=== PATIENT | female | born 1995 | race Caucasian/White ===

== ENCOUNTER 2017-07-18 08:50 | Emergency (ER) | payer OTHER ==
[2017-07-18 09:08] VITALS: BP 122/52
[2017-07-18] MEDS ORDERED: Ondansetron ODT TAB* 4 MG PO ONE (09:08)
[2017-07-18] MEDS ORDERED: Ondansetron ODT TAB* 4 MG ONE (09:10)
--- NOTE | 2017-07-18 20:31 | ED ---
Yasmany Mederos Gabriel, scribed for Christine Alonso MD on 07/18/17 at 0923 . Abdominal Pain/Female - HPI Summary HPI Summary: This patient is a 21 year old F presenting to [facility] with a chief complaint of abdominal pain since 0400. The patient rates the pain 10/10 in severity. Patient reports vomiting, diarrhea, stool and urinary incontinence. Patient denies vaginal discharge or bleeding. Patient is 28 week and has had another child by C section with no complications. She recently was taking abx for a bacterial infection. She does not recognize the medication rhogam but does not know her Rh status. She is followed by [facility]. Pt presented thinking she had the flu. Note Chief complaint listed states animal bite. Pt does not have an animal bite. Pt has abdominal pain. - History of Current Complaint Chief Complaint: EDAnimalBite Stated Complaint: 28 WKS PREG-POSSIBLE FLU Time Seen by Provider: 07/18/17 08:59 Hx Obtained From: Patient Hx Last Menstrual Period: 07/06/14 ?: Yes Onset/Duration: Lasting Hours - 0400, Still Present Timing: Constant Severity Initially: Severe Severity Currently: Severe Pain Intensity: 10 Pain Scale Used: 0-10 Numeric Location: Diffuse - low abdominal Radiates: No Character: Cramping Aggravating Factor(s): Nothing Alleviating Factor(s): Nothing Associated Signs and Symptoms: Positive: Urinary Symptoms, Vomiting, Diarrhea, Other: - urinary incontinence. Negative: Vaginal Bleeding Allergies/Adverse Reactions: Allergies Allergy/AdvReac Type Severity Reaction Status Date / Time Bee Venom Allergy Unknown Unknown Verified 07/18/17 10:08 Reaction Details PMH/Surg Hx/FS Hx/Imm Hx Previously Healthy: Yes Endocrine/Hematology History: Denies: Hx Diabetes, Hx Thyroid Disease Cardiovascular History: Denies: Hx Hypertension Respiratory History: Reports: Hx Asthma Denies: Hx Chronic Obstructive Pulmonary Disease (COPD) GI History: Denies: Hx Ulcer - Surgical History Surgery Procedure, Year, and Place: c section Infectious Disease History: No Infectious Disease History: Denies: Hx Hepatitis, Hx Human Immunodeficiency Virus (HIV), Traveled Outside the US in Last 30 Days - Family History Known Family History: Positive: Cardiac Disease, Other - cancer - Social History Alcohol Use: None Substance Use Type: Reports: Marijuana Smoking Status (MU): Light Every Day Tobacco Smoker Type: Cigarettes Have You Smoked in the Last Year: Yes Review of Systems Constitutional: Negative Cardiovascular: Negative Respiratory: Negative Positive: Abdominal Pain, Vomiting Genitourinary: Negative - vaginal discharge or bleeding Positive: incontinence - urinary and stool Skin: Negative Neurological: Negative Psychological: Normal All Other Systems Reviewed And Are Negative: Yes Physical Exam - Summary Physical Exam Summary: Appearance: Well-appearing, in severe pain distress, Well-nourished Skin: Warm, color reflects adequate perfusion Head: Normal Head/Face Eyes: Conjunctiva clear ENT: Normal appearance Neck: Supple Respiratory: Lungs clear, Normal breath sounds, no respiratory distress, hyperventilating Cardio: RRR, No murmur, pulses normal, brisk capillary refill Abdomen: soft, nontender, felt uterus hardening with contraction, fundus 3 fingers above umbilicus Bowel sounds: present Musculoskeletal: Strength Intact/ ROM intact Neuro: Alert, muscle tone normal, ED: facial symmetry, speech normal, sensory/ motor intact Psychological: Normal Triage Information Reviewed: Yes Vital Signs On Initial Exam: Initial Vitals Temp Pulse Resp BP Pulse Ox 97.6 F 90 20 122/52 98 07/18/17 09:00 07/18/17 09:00 07/18/17 09:00 07/18/17 09:00 07/18/17 09:00 Vital Signs Reviewed: Yes Diagnostics - Vital Signs Vital Signs Temp Pulse Resp BP Pulse Ox 07/18/17 09:00 97.6 F 90 20 122/52 98 - Laboratory Lab Statement: Any lab studies that have been ordered have been reviewed, and results considered in the medical decision making process. Abdominal Pain Fem Course/Dx - Course Course Of Treatment: Patient is clinically in labor and has viable fetus patient will go to maternity for definitive level of care. The patient is agreeable with this plan. - Diagnoses Differential Diagnosis: Positive: Appendicitis, Ectopic , Other Provider Diagnoses: , EARLY LABOR Discharge - Discharge Plan Condition: Stable Disposition: TRANSFER TO OB ([facility]) Patient Education Materials: Abdominal Pain in (ED) Referrals: No Primary Care Phys,NOPCP [Primary Care Provider] - Additional Instructions: Go directly to labor and delivery now. The documentation as recorded by the Yasmany browne Gabriel accurately reflects the service I personally performed and the decisions made by Gavin lubin Barbara J, MD.
== END 2017-07-18 17:30 | disposition other institution (70) ==
LOC: ED 08:50
DX: O60.03 Preterm labor without delivery, third trimester (principal); Z34.93 Encounter for supervision of normal pregnancy, unspecified, third trimester; R11.10 Vomiting, unspecified; F17.210 Nicotine dependence, cigarettes, uncomplicated; Z3A.28 28 weeks gestation of pregnancy
CPT/HCPCS: 87502; 96374; 96375; 99282; A9270-GY

== ENCOUNTER 2017-10-14 05:15 | Inpatient (IN) | payer OTHER ==
[2017-10-14] MEDS ORDERED: Morphine PF AMP (0.5MG/ML)* 5 MG/10 ML AMP ONE (07:52)
[2017-10-14] MEDS ORDERED: Sodium Citrate/Citric Acid* 15 ML UDC ONE (07:57)
[2017-10-14] MEDS ORDERED: CEFOXITIN 2 GM IVPB ONE ×2 (08:00)
[2017-10-14] MEDS ORDERED: diPHENhydraMINE IV* 50 MG/ML 1 ml VIAL (BENADRYL) IV PRN (08:51)
[2017-10-14] MEDS ORDERED: HYDROmorphone INJ* 1 MG/ML CARPUJECT SYRINGE IV PRN (08:51)
[2017-10-14] MEDS ORDERED: fentaNYL* 50 MCG/ML 2 ML VIAL (100 MCG VIAL) IV PRN (08:51)
[2017-10-14] MEDS ORDERED: Ondansetron INJ* 2 MG/ML VIAL IV PRN ×2 (08:51→08:52)
[2017-10-14] MEDS ORDERED: Nalbuphine* 20 MG/ML 1 ML VIAL IV PRN ×2 (08:51→08:52)
[2017-10-14] MEDS ORDERED: DiMENhydriNATE IV* 50 MG/ML VIAL IV PUSH PRN ×2 (08:51→08:52)
[2017-10-14] MEDS ORDERED: Naloxone* 0.4 MG/ML 1 ML VIAL IV PRN ×2 (08:51→08:52)
[2017-10-14] MEDS ORDERED: HYDROcodone/ACETAMIN 5-325 MG* 1 TAB PO PRN (08:52)
[2017-10-14] MEDS ORDERED: Scopolamine PATCH Remove* 1 NOTE MISC PATCH OFF PRN (08:52)
[2017-10-14] MEDS ORDERED: Acetaminophen TAB* 325 MG PO PRN ×2 (08:52→11:06)
[2017-10-14] MEDS ORDERED: oxyCODONE/Acetamin 5/325 MG* TAB PO PRN ×3 (08:52→11:06)
[2017-10-14] MEDS ORDERED: Ketorolac INJ* 30 MG/ML 1 ML VIAL IV PRN (08:52)
[2017-10-14] MEDS ORDERED: Scopolamine 1.5 mg* PATCH TRANSDERM PRN (08:52)
[2017-10-14] MEDS ORDERED: Ondansetron INJ* 2 MG/ML VIAL ONE (09:06)
[2017-10-14] MEDS ORDERED: OXYTOCIN* 10 UNITS/ML 1 ML VIAL ONE (09:06)
[2017-10-14] MEDS ORDERED: Oxytocin in LR* 20 UNITS/1,000 ML BAG IVPB ONE (11:03)
[2017-10-14] MEDS ORDERED: Glycerin ADULT SUPP PR PRN (11:06)
[2017-10-14] MEDS ORDERED: Dibucaine 1% 28.35 GM TUBE PR PRN (11:06)
[2017-10-14] MEDS ORDERED: Witch Hazel PAD* JAR TOPICAL PRN (11:06)
[2017-10-14] MEDS ORDERED: Oxytocin in LR* 20 UNITS/1,000 ML BAG IVPB SCH (12:00)
[2017-10-14] MEDS: Simethicone TAB* 80 MG TAB.CHEW PO SCH ×3 (13:48→21:56)
[2017-10-14] MEDS: Docusate CAP* 100 MG PO SCH ×2 (13:48→21:56)
[2017-10-14] MEDS ORDERED: Benzocaine/Menthol LOZ* 1 LOZENGE PO PRN (21:39)
[2017-10-14] MEDS: Ibuprofen TAB* 600 MG PO PRN (21:55)
[2017-10-15 08:15] VITALS: BP 130/75
[2017-10-15] MEDS ORDERED: Ferrous Gluconate TAB* 324 MG TAB PO SCH (09:00)
[2017-10-15] MEDS ORDERED: Prenatal Vitamin TAB PO SCH (09:00)
[2017-10-15] MEDS: Ibuprofen TAB* 600 MG PO PRN (09:19)
[2017-10-15] MEDS: Simethicone TAB* 80 MG TAB.CHEW PO SCH (09:19)
[2017-10-15] MEDS: Docusate CAP* 100 MG PO SCH (09:19)
--- NOTE | 2017-10-15 09:26 | OP ---
DATE OF OPERATION: 10/14/17 - ROOM #116 DATE OF : 89 SURGEON: Charlette Russo MD. SCHEDULE PLANNING MANAGER: Hannah Chapa CM. ANESTHESIOLOGIST: Dr. Swan. ANESTHESIA: Spinal. PRE-OP DIAGNOSIS: Desires repeat section, intrauterine 39-1/ 7 weeks. POST-OP DIAGNOSIS: Desires repeat section, intrauterine 39-1 /7 weeks, delivered. OPERATIVE PROCEDURE: Repeat low transverse section. ESTIMATED BLOOD LOSS: 800 cc. URINE OUTPUT: 200 cc of concentrated yellow urine. FLUIDS: 1700 cc of crystalloid. FINDINGS: Revealed a vertex female infant, Apgars 9 at one minute and 9 at five minutes. No nuchal cord. No meconium. Weight was 8 pounds 3 ounces. Normal- appearing tubes and ovaries bilaterally. Placenta grossly within normal appearance; however, is densely adherent and difficulty removal of the placenta at the posterior wall in approximately 2 cm location. Placenta will go to Pathology. COMPLICATIONS: None apparent. DISPOSITION: Stable to recovery room. DESCRIPTION OF PROCEDURE: The patient was placed in dorsal lithotomy position. The abdomen was prepped and draped in a sterile standard fashion. Anesthesia was tested to appropriate level and the patient was identified with universal protocol for correct procedure, patient, and position. An incision was made through prior incision with scalpel. This was carried down through to the fascia. The fascia was scored in the midline and the fascial incision was extended laterally and superiorly using Zhou scissors. The fascia was superiorly and inferiorly with blunt and sharp dissection. The peritoneum was entered with Metzenbaum scissors and the peritoneal incision was extended bluntly directly visualizing where bowel and bladder were. A bladder blade was inserted. The lower uterine segment was identified and Allis was used to tent up the lower uterine segment. An incision was made in the lower uterine segment with the scalpel. This was carried down through to the membranes. Clear fluid was noted. The incision was extended laterally and superiorly using bandage scissors. The infant was delivered vertex. No nuchal cord. No meconium was appreciated. Cord was allowed to pulse for 60 seconds and then cord was then clamped and cut and the infant was handed off to awaiting sweat band separator. Appropriate cord blood was obtained. Placenta was then manually extracted, noted to be adherent posteriorly on a 2 to 3 cm location to the right posterior wall. The uterine cavity was wiped and noted to be clean throughout with no retained membranes. This area where the placenta was densely adherent, bled slightly more than other locations of placental attachment, but reduced significantly with administration of IV Pitocin. The hysterotomy site was then reapproximated, first layer running locked 0 Vicryl, second layer running imbricated 0 Vicryl. Tubes and ovaries were noted to have a normal appearance. The uterus was returned intra- abdominally. Colic gutters were lavaged. Hysterotomy site was noted to be hemostatic. The peritoneum was then reapproximated using 3-0 Vicryl in a running fashion. Subfascial area was visualized and noted to be hemostatic. The fascia was then reapproximated using 0 Vicryl x2 in a running fashion. The subcu was lavaged. Hemostasis assured with Bovie coagulation and the skin was reapproximated using 4-0 Monocryl in a subcuticular fashion. Mastisol and Steri -Strips were placed. All sponge, needle, instrument, and blade counts were correct throughout the case. The patient tolerated the procedure well and went to recovery room in stable condition. [id number]/[facility] #: [id number] BRITTANY
[2017-10-15 10:54] LABS: ABS Basophils 0.1 10^3/ul (0-0.2); ABS Eosinophils 0.2 10^3/ul (0-0.6); ABS Lymphocytes 1.9 10^3/ul (1.0-4.8); ABS Monocytes 0.7 10^3/ul (0-0.8); ABS Neutrophils 8.9 10^3/ul (1.5-7.7); ABS Nucleated RBC 0 10^3/ul; Eosinophil % 1.7 % (0-6); Hematocrit 34 % (35-47); Hemoglobin 11.4 g/dl (12.0-16.0); Lymphocyte % 16.4 % (25-47); Mean Corpuscular HGB Conc 34 g/dl (31-36); Mean Corpuscular Hemoglobin 29 pg (27-31); Mean Corpuscular Volume 86 fL (80-97); Mean Platelet Volume 9 um3 (7.4-10.4); Nucleated Red Blood Cells % 0; Platelet Count 236 10^3/ul (150-450); Red Blood Count 3.95 10^6/ul (4.0-5.4); Red Cell Distribution Width 14 % (10.5-15); White Blood Count 11.7 10^3/ul (3.5-10.8)
== END 2017-10-15 12:51 | disposition left against medical advice (07) | DRG 540 ==
LOC: MCHOB 05:15 → UNDOADMIN 05:15 → MCHOB 06:38
PROVIDERS: ADMIT Obstetrics & Gynecology; ATTEND Obstetrics & Gynecology
PROC: 4A1HXCZ Monitoring of Products of Conception, Cardiac Rate, External Approach (ICD-10-PCS; 2017-10-14)
PROC: 10D00Z1 Extraction of Products of Conception, Low, Open Approach (ICD-10-PCS; principal; 2017-10-14 07:45)
DX: O34.211 Maternal care for low transverse scar from previous cesarean delivery (principal); O72.0 Third-stage hemorrhage; F17.210 Nicotine dependence, cigarettes, uncomplicated; Z91.030 Bee allergy status; O99.334 Smoking (tobacco) complicating childbirth; Z3A.39 39 weeks gestation of pregnancy; Z37.0 Single live birth; Z53.21 Procedure and treatment not carried out due to patient leaving prior to being seen by health care provider
CPT/HCPCS: 36415; 80307; 85025; 88307; A9270-GY; J0694; J2405; J2590

== ENCOUNTER 2019-06-20 12:30 | Emergency (ER) | payer OTHER ==
[2019-06-20] MEDS ORDERED: Ondansetron INJ* 2 MG/ML VIAL IV ONE (14:28)
[2019-06-20] MEDS ORDERED: NS 0.9% 1000 ML** 1,000 ML IV ONE (14:28)
--- NOTE | 2019-06-20 14:29 | ED ---
Complex/Multi-Sys Presentation - HPI Summary HPI Summary: Patient is a 23 y/o F presenting to the ED for a chief complaint of diffuse abdominal pain. Patient states that the abdominal pain has a cramping sensation. Patient also notes nausea, vomiting, chills, shortness of breath, occasional cough, and rhinorrhea. Patient denies chest pain, fever, sore throat , diarrhea, vaginal bleeding, or vaginal discharge. She believes she has influenza. Patient is currently 28 weeks and is seen at [facility], but has not been seen there for the last 2 months. This is the patient's 3rd . PSHx is significant for 2 C-sections and FMHx is significant for breast cancer, Patient admit tobacco use, but denies alcohol or drug use. - History Of Current Complaint Chief Complaint: EDAbdPain Time Seen by Provider: 06/20/19 14:16 Hx Obtained From: Patient Onset/Duration: Sudden Onset, Still Present Timing: Constant Severity Currently: Moderate Severity Initially: Moderate Associated Signs And Symptoms: Positive: SOB, Cough, Nausea, Vomiting, Abdominal Pain, Other - Positive rhinorrhea, chills; negative sore throat, vaginal bleeding, and vaginal discharge. Negative: Chest Pain, Diarrhea, Fever - Allergies/Home Medications Allergies/Adverse Reactions: Allergies Allergy/AdvReac Type Severity Reaction Status Date / Time bee venom protein (honey bee) Allergy Anaphylatic Verified 10/14/17 07:25 Shock PMH/Surg Hx/FS Hx/Imm Hx Previously Healthy: Yes Endocrine/Hematology History: Denies: Hx Diabetes, Hx Thyroid Disease Cardiovascular History: Denies: Hx Hypercholesterolemia, Hx Hypertension Respiratory History: Reports: Hx Asthma Denies: Hx Chronic Obstructive Pulmonary Disease (COPD) GI History: Denies: Hx Ulcer Sensory History: Denies: Hx Legally Blind, Hx Deafness Opthamlomology History: Denies: Hx Legally Blind EENT History: Denies: Hx Deafness - Surgical History Surgical History: Yes Surgery Procedure, Year, and Place: Infectious Disease History: No Infectious Disease History: Denies: Hx Hepatitis, Hx Human Immunodeficiency Virus (HIV), Traveled Outside the US in Last 30 Days - Family History Known Family History: Positive: Other - Breast cancer - Social History Occupation: Unemployed Lives: With Family Alcohol Use: None Hx Substance Use: Yes Substance Use Type: Reports: Marijuana Substance Use Comment - Amount & Last Used: +UDC for THC in August 2017 - denied since Hx Tobacco Use: Yes Smoking Status (MU): Light Every Day Tobacco Smoker Type: Cigarettes Amount Used/How Often: 1/2 pack / day Length of Time of Smoking/Using Tobacco: 7yrs Have You Smoked in the Last Year: Yes Review of Systems Positive: Chills. Negative: Fever Positive: Nasal Discharge. Negative: Sore Throat Negative: Chest Pain Positive: Shortness Of Breath, Cough Positive: Abdominal Pain, Vomiting, Nausea. Negative: Diarrhea Positive: other - Negative vaginal bleeding or discharge All Other Systems Reviewed And Are Negative: Yes Physical Exam - Summary Physical Exam Summary: VITAL SIGNS: Reviewed. GENERAL: Patient is a well-developed and nourished FEMALE who is lying comfortable in the stretcher. Patient is not in any acute respiratory distress or any acute distress. HEAD AND FACE: No signs of trauma. No ecchymosis, hematomas or skull depressions. No sinus tenderness. EYES: PERRLA, EOMI x 2, No injected conjunctiva, no nystagmus. EARS: Hearing grossly intact. Ear canals and tympanic membranes are within normal limits. MOUTH: Oropharynx within normal limits. Dry oral mucosa. NECK: Supple, trachea is midline, no adenopathy, no JVD, no carotid bruit, no c- spine tenderness, neck with full ROM. CHEST: Symmetric, no tenderness at palpation. LUNGS: Clear to auscultation bilaterally. No wheezing or crackles. CVS: Regular rate and rhythm, S1 and S2 present, no murmurs or gallops appreciated. ABDOMEN: Soft, non-tender. No rebound, no guarding, and no masses palpated. Bowel sounds are normal. Abdominal distention secondary to with distended umbilicus. EXTREMITIES: FROM in all major joints, no edema, no cyanosis or clubbing. NEURO: Alert and oriented x 3. No acute neurological deficits. Speech is normal and follows commands. SKIN: Dry and warm. Triage Information Reviewed: Yes Vital Signs On Initial Exam: Initial Vitals Temp Pulse Resp BP Pulse Ox 96.4 F 81 24 147/86 100 06/20/19 12:35 06/20/19 12:35 06/20/19 12:35 06/20/19 12:35 06/20/19 12:35 Vital Signs Reviewed: Yes Procedures - Sedation Patient Received Moderate/Deep Sedation with Procedure: No Diagnostics - Vital Signs Vital Signs Temp Pulse Resp BP Pulse Ox 06/20/19 12:35 96.4 F 81 24 147/86 100 - Laboratory Result Diagrams: 06/20/19 15:11 06/20/19 15:11 Lab Statement: Any lab studies that have been ordered have been reviewed, and results considered in the medical decision making process. - Ultrasound US Ultrasound Interpretation Completed By: Radiologist Summary of Ultrasound Findings: US IMPRESSION: Single intrauterine gestation with a gestational age of 28 weeks 2 days determined by initial ultrasound. heart activity at 156. Reviewed by Dr. Sanders. Complex Multi-Symp Course/Dx Assessment/Plan: The patient is a 23-year-old female who presents to the emergency department with chief complaint of nausea and vomiting without any diarrhea or constipation. She reports that she is 28 weeks and she has not had a follow-up in the last 2 months. She also reports: Abdominal cramping. She denies any vaginal bleeding or discharge. ultrasound impression: Single intrauterine gestation with a gestational age of 28 weeks and 2 days and heart rate activity 156. Blood work is without any significant abnormality except for WBCs of 14.1, sodium 133, glucose 131, calcium 8.3, and total protein of 6. Urinalysis is negative for UTI. In the ED course, the patient was given IV fluids and Zofran for nausea and vomiting. She continued to have some nausea therefore she was given 1 dose of Reglan and her symptoms subsided. At this point the patient is tolerating medications well by mouth therefore the patient will be discharged home to follow-up with her primary care physician. The patient reports that all of her symptoms have subsided. She continues to deny any abdominal pain, vaginal bleeding, or vaginal discharge. I discussed all the physical exam findings and test results with the patient. Patient was instructed to return to the emergency room immediately if any of the symptoms return or worsen. Plan of care was discussed with the patient who understands and agrees. All questions were answered at the patient's satisfaction. There were no further complaints or concerns. Lung exam before discharge: CTA B/L. Good air exchange. No wheezing or crackles heard. CVS : S1 and S2 present. No murmurs appreciated. Patient is alert and oriented x 3. Patient is hemodynamically stable. Patient will be discharged home to follow up with her PCP in the next 2-3 days. - Diagnoses Provider Diagnoses: Nausea & vomiting Discharge ED - Sign-Out/Discharge Documenting (check all that apply): Patient Departure - Discharge - Discharge Plan Condition: Stable Disposition: HOME Prescriptions: Metoclopramide TAB* [Reglan TAB*] 10 mg PO Q8H PRN #10 tab PRN Reason: Nausea Patient Education Materials: Nausea and Vomiting in (ED) Referrals: [facility] [Outside] Cliff Graf MD [Medical Doctor] - Additional Instructions: FOLLOW UP WITH YOUR PRIMARY CARE PROVIDER WITHIN 3 DAYS. RETURN TO THE ED FOR ANY WORSENING OR NEW SYMPTOMS. - Billing Disposition and Condition Condition: STABLE Disposition: Home - Attestation Statements Document Initiated by Dawna: Yes Documenting Scribe: Mi Mcgrath Provider For Whom Dawna is Documenting (Include Credential): Drew Sanders MD Scribe Attestation: Mi Mederos scribed for Drew Sanders MD on 06/20/19 at 2100. Scribe Documentation Reviewed: Yes Provider Attestation: The documentation as recorded by the Mi browne accurately reflects the service I personally performed and the decisions made by , Drew Sanders MD Status of Scribe Document: Viewed
[2019-06-20 15:17] LABS: Urine Appearance Cloudy; Urine Bilirubin Negative (Negative); Urine Blood Negative (Negative); Urine Color Yellow; Urine Glucose Negative (Negative); Urine Ketones 2+ (Negative); Urine Nitrite Negative (Negative); Urine Protein 1+(30 mg/dL) (Negative); Urine Specific Gravity 1.025 (1.010-1.030); Urine Urobilinogen Negative (Negative)
[2019-06-20 15:25] LABS: Hematocrit 38 % (35-47); Hemoglobin 12.9 g/dL (12.0-16.0); Mean Corpuscular HGB Conc 34 g/dL (31-36); Mean Corpuscular Hemoglobin 31 pg (27-31); Mean Corpuscular Volume 92 fL (80-97); Mean Platelet Volume 8.4 fL (7.4-10.4); Platelet Count 214 10^3/uL (150-450); Red Blood Count 4.13 10^6 /uL (3.70-4.87); Red Cell Distribution Width 13 % (10-15); White Blood Count 14.1 10^3/uL (3.5-10.8)
[2019-06-20 15:29] LABS: Urine Bacteria Absent (Absent); Urine Red Blood Cell Trace(0-2/hpf) (Absent); Urine Squamous Epithelial Cell Present (Absent); Urine White Blood Cell Trace(0-5/hpf) (Absent)
[2019-06-20 15:46] LABS: Albumin 3.5 g/dL (3.2-5.2); Albumin/Globulin Ratio 1.4 (1-3); BUN/Creatinine Ratio 13.7 (8-20); C Reactive Protein 2.85 mg/L (<8.01); Calcium 8.3 mg/dL (8.6-10.3); EGFR African American 177.8 (>60); EGFR Non-African American 146.9 (>60); Globulin 2.5 g/dL (2-4); Potassium 3.7 mmol/L (3.5-5.0); Total Bilirubin 0.4 mg/dL (0.2-1.0)
[2019-06-20 15:55] LABS: ABS Lymphocytes 1.2 10^3/ul (1.0-4.8); ABS Monocytes 0.4 10^3/ul (0-0.8); ABS Neutrophils 12.5 10^3/ul (1.5-7.7); Eosinophil % 0.1 %; Lymphocyte % 8.7 %
[2019-06-20] MEDS ORDERED: Acetaminophen TAB* 325 MG PO ONE (17:32)
[2019-06-20] MEDS ORDERED: Metoclopramide IV* 5 MG/ML 2 ML VIAL IV SLOW PU ONE (17:32)
[2019-06-20 19:09] VITALS: BP 149/79
== END 2019-06-20 19:06 | disposition home or self-care (01) ==
LOC: ED 12:30
DX: O21.2 Late vomiting of pregnancy (principal); R10.84 Generalized abdominal pain; R06.02 Shortness of breath; R05 Cough; J34.89 Other specified disorders of nose and nasal sinuses; Z3A.28 28 weeks gestation of pregnancy; Z91.030 Bee allergy status; F17.210 Nicotine dependence, cigarettes, uncomplicated
CPT/HCPCS: 36415; 76815; 80053; 81003; 81015; 83690; 85025; 86140; 87086; 96361; 96374; 96375; 99282; A9270-GY; J2405; J2765

== ENCOUNTER 2019-06-22 10:45 | Emergency (ER) | payer OTHER ==
--- NOTE | 2019-06-22 11:39 | ED ---
- HPI Summary HPI Summary: 23 year old female presents with nausea and vomiting for the past couple days. She states that she was seen here a couple days ago and was sent home with reglan which she did not take. She states that she's been having generalized abdominal pain. She states tenderness is greatest along the right upper quadrant and along her scar. She denies any contractions. She has never had this pain before with previous . States she's never had nausea vomiting with before. She hasn't followed up with an OB in many weeks as she had to go to [place] for emergency. She states that she has appointment with OB on Wednesday. She denies any fevers. She has not been able to keep anything down. Denies any chest pain or shortness of breath. She felt pass out but does not feel that way now. Denies any urinary symptoms. No vaginal bleeding. No leaking of fluids. States she's been feeling baby kick as normal. - History of Current Complaint Chief Complaint: EDAbdPaky Stated Complaint: RELATED ABDOMINAL PAIN PER EMS Time Seen by Provider: 06/22/19 11:23 Pain Intensity: 8 - Assessment Hx Now: - unsure Hx : 2 SAB: 0 IEA: 0 - Additional Pertinent History Maternal Blood Type and Rh: B Positive - Allergies/Home Medications Allergies/Adverse Reactions: Allergies Allergy/AdvReac Type Severity Reaction Status Date / Time bee venom protein (honey bee) Allergy Anaphylatic Verified 10/14/17 07:25 Shock PMH/Surg Hx/FS Hx/Imm Hx Endocrine/Hematology History: Denies: Hx Diabetes, Hx Thyroid Disease Cardiovascular History: Denies: Hx Hypercholesterolemia, Hx Hypertension Respiratory History: Reports: Hx Asthma Denies: Hx Chronic Obstructive Pulmonary Disease (COPD) GI History: Denies: Hx Ulcer Sensory History: Denies: Hx Legally Blind, Hx Deafness Opthamlomology History: Denies: Hx Legally Blind - Surgical History Surgery Procedure, Year, and Place: Infectious Disease History: No Infectious Disease History: Denies: Hx Hepatitis, Hx Human Immunodeficiency Virus (HIV), Traveled Outside the US in Last 30 Days - Family History Known Family History: Positive: Other - Breast cancer - Social History Alcohol Use: None Hx Substance Use: Yes Substance Use Type: Reports: None Substance Use Comment - Amount & Last Used: +UDC for THC in August 2017 - denied since Hx Tobacco Use: Yes Smoking Status (MU): Light Every Day Tobacco Smoker Type: Cigarettes Amount Used/How Often: 1/2 pack / day Length of Time of Smoking/Using Tobacco: 7yrs Have You Smoked in the Last Year: Yes Review of Systems Negative: Fever Negative: Chest Pain Negative: Shortness Of Breath Positive: Abdominal Pain, Vomiting, Nausea. Negative: Diarrhea All Other Systems Reviewed And Are Negative: Yes Physical Exam - Physical Exam Triage Information Reviewed: Yes Vital Signs Reviewed: Yes Appearance: Positive: Well-Appearing Skin: Positive: Warm, Dry Head/Face: Positive: Normal Head/Face Inspection Eyes: Positive: Normal, Conjunctiva Clear ENT: Positive: Pharynx normal Respiratory/Lung Sounds: Positive: Clear to Auscultation, Breath Sounds Present Cardiovascular: Positive: Normal, RRR Abdomen Description: Positive: Other: - abdomen, tenderness LUQ and lower pelvic area Bowel Sounds: Positive: Present Musculoskeletal: Positive: Normal Neurological: Positive: Normal Psychiatric: Positive: Normal Procedures - Sedation Patient Received Moderate/Deep Sedation with Procedure: No Diagnostics - Vital Signs Vital Signs Temp Pulse Resp BP Pulse Ox 06/22/19 11:20 97.8 F 74 18 137/80 100 - Laboratory Result Diagrams: 06/22/19 11:42 06/22/19 11:42 Lab Statement: Any lab studies that have been ordered have been reviewed, and results considered in the medical decision making process. Re-Evaluation - Re-Evaluation First Eval Re-Evaluation Time: 12:55 Change: Improved Comment: feeling better, will give supplements Second Eval Re-Evaluation Time: 13:43 Change: Improved Comment: nausea and abd resolved, ready to try food Third Eval Re-Evaluation Time: 15:03 Change: Improved Comment: tolerated food, patient wants to go home Course/Dx - Course Course Of Treatment: 23 year old female presents with nausea and vomiting for the past couple days. She states that she was seen here a couple days ago and was sent home with reglan which she did not take. She states that she's been having generalized abdominal pain. She states tenderness is greatest along the right upper quadrant and along her scar. She denies any contractions. She has never had this pain before with previous . States she's never had nausea vomiting with before. She hasn't followed up with an OB in many weeks as she had to go to [place] for emergency. She states that she has appointment with OB on Wednesday. She denies any fevers. She has not been able to keep anything down. Denies any chest pain or shortness of breath. She felt pass out but does not feel that way now. Denies any urinary symptoms. No vaginal bleeding. No leaking of fluids. States she's been feeling baby kick as normal. On exam tenderness in left upper quadrant greatest. Has some lower abdominal pain. wbc 11.2. crp slightly elevated. potassium 3.2. mg is 1.3 so gave supplement. symptoms resolved with tyenlol and reglan. patient tolerated crackers in ED. patient is pain free. patient had u/s two days ago and patient states no difference in pain so will not get repeat oxygen. hr 140. discussed will give liquid reglan as patient feels will tolerate it better. told can add benadryl in addition. told follow up with ob. patient understand and agrees with plan. - Differential Diagnosis/HQI/PQRI: Other: - vomiting - Diagnoses Provider Diagnoses: Vomiting during Discharge ED - Sign-Out/Discharge Documenting (check all that apply): Patient Departure - Discharge Plan Condition: Good Disposition: HOME Prescriptions: Metoclopramide LIQ* [Reglan LIQ*] 5 mg PO Q6HR #1 damari Patient Education Materials: Nausea and Vomiting in (ED) Referrals: Adriel Rainey MD [Medical Doctor] - Additional Instructions: use reglan every 6 hours, can add on benadryl every 6 hours in addition eat small frequent meals take tyenlol every 6 hours for pain follow up with ob Return to ed if develop any new or worsening symptoms - Billing Disposition and Condition Condition: GOOD Disposition: Home
[2019-06-22] MEDS: Metoclopramide IV* 5 MG/ML 2 ML VIAL IV SLOW PU ONE (11:44)
[2019-06-22] MEDS: NS 0.9% 1000 ML** 2,000 ML IV ONE (11:45)
[2019-06-22 12:09] LABS: ABS Lymphocytes 1.8 10^3/ul (1.0-4.8); ABS Monocytes 0.8 10^3/ul (0-0.8); ABS Neutrophils 8.5 10^3/ul (1.5-7.7); Eosinophil % 0.4 %; Hematocrit 37 % (35-47); Hemoglobin 13.1 g/dL (12.0-16.0); Lymphocyte % 15.8 %; Mean Corpuscular HGB Conc 35 g/dL (31-36); Mean Corpuscular Hemoglobin 32 pg (27-31); Mean Corpuscular Volume 90 fL (80-97); Mean Platelet Volume 8.2 fL (7.4-10.4); Platelet Count 221 10^3/uL (150-450); Red Blood Count 4.12 10^6 /uL (3.70-4.87); Red Cell Distribution Width 13 % (10-15); White Blood Count 11.2 10^3/uL (3.5-10.8)
[2019-06-22 12:20] LABS: Albumin 3.2 g/dL (3.2-5.2); Albumin/Globulin Ratio 1.1 (1-3); C Reactive Protein 8.03 mg/L (<8.01); EGFR African American 147.4 (>60); EGFR Non-African American 121.8 (>60); Globulin 2.8 g/dL (2-4); Magnesium 1.3 mg/dL (1.9-2.7); Potassium 3.2 mmol/L (3.5-5.0); Total Bilirubin 0.4 mg/dL (0.2-1.0)
[2019-06-22] MEDS: Acetaminophen TAB* 325 MG PO ONE (13:22)
[2019-06-22] MEDS: Al Hydrox/Mg Hydrox/Simet LIQ* 30 ML UDC PO ONE (13:22)
[2019-06-22] MEDS: Potassium Chlor TAB* 20 MEQ TAB.ER PO ONE (13:22)
[2019-06-22] MEDS: Magnesium Sulfate 2 GM IV* 2 GM/50 ML BAG IVPB ONE (13:23)
[2019-06-22 14:55] LABS: Urine Appearance Clear; Urine Bilirubin Negative (Negative); Urine Blood Negative (Negative); Urine Color Yellow; Urine Glucose Negative (Negative); Urine Ketones 1+ (Negative); Urine Nitrite Negative (Negative); Urine Protein Negative (Negative); Urine Specific Gravity 1.008 (1.010-1.030); Urine Urobilinogen Negative (Negative)
[2019-06-22 15:42] VITALS: BP 123/72
[2019-06-22 15:55] LABS: Urine Benzodiazepine Screen None Detected (None Detect); Urine Opiates Screen None Detected (None Detect)
== END 2019-06-22 15:00 | disposition home or self-care (01) ==
LOC: ED 10:45
DX: O21.0 Mild hyperemesis gravidarum (principal); O99.330 Smoking (tobacco) complicating pregnancy, unspecified trimester; F17.210 Nicotine dependence, cigarettes, uncomplicated; Z3A.00 Weeks of gestation of pregnancy not specified
CPT/HCPCS: 36415; 80053; 80307; 81003; 83605; 83690; 83735; 85025; 86140; 96361; 96365; 96375; 99283; A9270-GY; J2765; J3475

== ENCOUNTER 2019-08-29 22:35 | Inpatient (IN) | payer OTHER ==
[2019-08-29 23:05] LABS: ABS Basophils 0.1 10^3/ul (0-0.2); ABS Eosinophils 0.1 10^3/ul (0-0.6); ABS Lymphocytes 3.2 10^3/ul (1.0-4.8); ABS Monocytes 0.6 10^3/ul (0-0.8); ABS Neutrophils 8.8 10^3/ul (1.5-7.7); Eosinophil % 0.7 %; Hematocrit 38 % (35-47); Hemoglobin 13.3 g/dL (12.0-16.0); Lymphocyte % 24.8 %; Mean Corpuscular HGB Conc 35 g/dL (31-36); Mean Corpuscular Hemoglobin 31 pg (27-31); Mean Corpuscular Volume 88 fL (80-97); Mean Platelet Volume 8.3 fL (7.4-10.4); Nucleated Red Blood Cells % 0.1; Platelet Count 240 10^3/uL (150-450); Red Blood Count 4.34 10^6 /uL (3.70-4.87); Red Cell Distribution Width 14 % (10-15); White Blood Count 12.7 10^3/uL (3.5-10.8)
[2019-08-29] MEDS ORDERED: ceFOXitin 2 GM IVPREMIX* 2 GM/50 ML BAG IVPB ONE (23:16)
[2019-08-29] MEDS ORDERED: Buffered Lidocaine 1% SYRIN* 1 ML/SYRINGE INTRADERM ONE (23:16)
[2019-08-29] MEDS ORDERED: Sodium Citrate/Citric Acid* 15 ML UDC PO ONE (23:16)
[2019-08-29] MEDS ORDERED: Lactated Ringers 1000 ML Bag* 1,000 ML IV ONE (23:16)
--- NOTE | 2019-08-29 23:26 | HP ---
General Information - Reason for Visit Patient is , in labor with a history of 2 prior sections and no care for this . - General Information Maternal Age: 23 Grav: 3 Para: 2 SAB: 0 IEA: 0 Estimated Due Date: 09/11/19 Determined By: U/S at 28 weeks on 06/20/19 - Matches her MARCE by LMP of 12/05/18 Maternal Blood Type and Rh: B Positive Past Medical History Delivery History: Hx C/Section Pertinent Family History: Non-Contributory - Antepartal Records Antepartal Records: Not Available - No prenantal care patient Review of Systems Constitutional: Uncomfortable CV Complaint: No Respiratory: Shortness of Breath: No Gastrointestinal: No Nausea/Vomiting, Normal Bowel Movement Genitourinary: No Dysuria, No Bleeding, No Leaking Fluid Musculoskeletal: No Epigastric Pain, Contractions Neurological: No Headache, No Visual Changes Movement: Normal Exam Allergies/Adverse Reactions: Allergies bee venom protein (honey bee) Allergy (Verified 08/29/19 22:19) Anaphylatic Shock Temp 97.1 P 81 BP on admission 165/105 RR 22 POx 100% RA Lab Values - Entire Visit: Laboratory Tests 08/29/19 08/29/19 22:47 22:47 WBC 12.7 H RBC 4.34 Hgb 13.3 Hct 38 MCV 88 MCH 31 MCHC 35 RDW 14 Plt Count 240 MPV 8.3 Neut % (Auto) 68.8 Lymph % (Auto) 24.8 [place] % (Auto) 4.8 Eos % (Auto) 0.7 Baso % (Auto) 0.9 Absolute Neuts (auto) 8.8 H Absolute Lymphs (auto) 3.2 Absolute Monos (auto) 0.6 Absolute Eos (auto) 0.1 Absolute Basos (auto) 0.1 Absolute Nucleated RBC 0.0 Nucleated RBC % 0.1 Blood Type B Positive - Measurements Height: 5 ft 6 in Weight: 160 lb Weight in lbs: [id number] Body Mass Index (BMI): 25.8 Pre- Weight: 145 lb Weight Gained This : 15 lbs and 0 ozs - Exam Breast: Breast Exam Deferred CVA: No CVA Tenderness Extremities: No Edema Heart: Normal Rhythm/Heart Sounds HEENT: No Significant Findings Lungs: Clear Bilaterally Rectal: Rectal Exam Deferred Reflexes: DTR 2+ Thyroid: No Thyromegaly - Abdominal Exam Abdomen Exam: Non-Tender, Fundal Height Consistent with Dates Targeted Exam Findings See L&D Outpatient Visit Provider Note for Findings: N/A Cervical Exam: 5cm Effacement: 80% Station: -1 Presenting Part: Vertex Membrane Status: Intact Bleeding/Discharge: None EFM Findings - External Monitor Findings Baseline Heart Rate: 130 External Monitor Findings: Accelerations Present, No Pattern of Variable or Late Decelerations Contractions: Regular, 45-90 Seconds - q 2-4 min apart Assessment/Plan - Assessment Term in labor with 2 prior sections. - Obstetrical Risk Factors Obstetrical Risk Factors: GBS Unknown, Previous C/Section in Labor, Psychosocial Issues, No Care - Plan Plan: IV Hydration, Antibiotic Prophylaxis, C/S Delivery - Date/Time of Admission Date of Admission: 08/29/19 Time of Admission: 11:20
[2019-08-29 23:31] LABS: Urine Appearance Cloudy; Urine Bilirubin Negative (Negative); Urine Blood Negative (Negative); Urine Color Amber; Urine Glucose Negative (Negative); Urine Ketones 2+ (Negative); Urine Nitrite Negative (Negative); Urine Protein 1+(30 mg/dL) (Negative); Urine Specific Gravity 1.021 (1.010-1.030); Urine Urobilinogen Negative (Negative)
[2019-08-29 23:43] LABS: Urine Benzodiazepine Screen None Detected (None Detect); Urine Opiates Screen None Detected (None Detect)
[2019-08-29] MEDS ORDERED: Lactated Ringers 1000 ML Bag* 1,000 ML IV SCH (23:45)
[2019-08-30] MEDS ORDERED: oxyCODONE TAB* 5 MG TAB PO PRN ×2 (00:11→00:13)
[2019-08-30] MEDS ORDERED: Ketorolac INJ* 30 MG/ML 1 ML VIAL IV PRN (00:11)
[2019-08-30] MEDS ORDERED: Naloxone* 0.4 MG/ML 1 ML VIAL IV PRN ×2 (00:11→00:13)
[2019-08-30] MEDS ORDERED: Acetaminophen TAB* 325 MG PO PRN ×2 (00:11→15:51)
[2019-08-30] MEDS ORDERED: Nalbuphine* 10 MG/ML 1 ML VIAL IV PRN (00:11)
[2019-08-30] MEDS ORDERED: Ondansetron INJ* 2 MG/ML VIAL IV PRN (00:11)
[2019-08-30] MEDS ORDERED: Metoclopramide IV* 5 MG/ML 2 ML VIAL IV PRN (00:13)
[2019-08-30] MEDS ORDERED: fentaNYL* 50 MCG/ML 2 ML VIAL (100 MCG VIAL) IV PRN (00:13)
[2019-08-30] MEDS ORDERED: Dibucaine 1% 28.35 GM TUBE PR PRN (00:39)
[2019-08-30] MEDS ORDERED: Witch Hazel PAD* JAR TOPICAL PRN (00:39)
[2019-08-30] MEDS ORDERED: Glycerin ADULT SUPP PR PRN (00:39)
[2019-08-30] MEDS ORDERED: Tetan/Diph/Pertus SYR(Tdap)* 0.5 ML SYR(BOOSTRIX) use SYR contains LATEX IM ONE (00:39)
[2019-08-30] MEDS ORDERED: Lactated Ringers 1000 ML Bag* 1,000 ML IV SCH (01:00)
[2019-08-30 01:10] LABS: ALT 20 U/L (7-52); AST 22 U/L (13-39); Albumin 3.1 g/dL (3.2-5.2); Albumin/Globulin Ratio 1.3 (1-3); Alkaline Phosphatase 165 U/L (34-104); Anion Gap 12 mmol/L (2-11); BUN/Creatinine Ratio 10.3 (8-20); Blood Urea Nitrogen 7 mg/dL (6-24); CO2 Carbon Dioxide 17 mmol/L (22-32); Calcium 8.3 mg/dL (8.6-10.3); Chloride 104 mmol/L (101-111); EGFR African American 127.6 (>60); EGFR Non-African American 105.4 (>60); Globulin 2.3 g/dL (2-4); Glucose 112 mg/dL (70-100); Potassium 3.9 mmol/L (3.5-5.0); Sodium 133 mmol/L (135-145); Total Protein 5.4 g/dL (6.4-8.9); Uric Acid 5.7 mg/dL (2.3-6.6)
[2019-08-30 01:40] LABS: Hepatitis B Surface Antigen Nonreactive (Nonreactive)
[2019-08-30 01:57] LABS: HIV 4th Generation Nonreactive (Nonreactive)
[2019-08-30 03:23] LABS: Rubella Screen IgG Immune (Immune)
[2019-08-30] MEDS: Simethicone TAB* 80 MG TAB.CHEW PO SCH ×4 (09:24→20:21)
[2019-08-30] MEDS: Docusate CAP* 100 MG PO SCH ×4 (09:24→20:21)
[2019-08-30 15:23] LABS: Chlamydia trachomatis NAA Negative (Negative); Neisseria gonorrhoeae (GC) NAA Negative (Negative)
[2019-08-30] MEDS ORDERED: Zolpidem TAB* 5 MG PO PRN (15:51)
[2019-08-30] MEDS ORDERED: oxyCODONE/Acetamin 5/325 MG* TAB PO PRN (15:51)
[2019-08-30] MEDS: oxyCODONE/Acetamin 5/325 MG* TAB PO PRN (20:21)
[2019-08-30] MEDS: Ibuprofen TAB* 600 MG PO PRN (23:49)
[2019-08-31 07:22] LABS: ABS Basophils 0.1 10^3/ul (0-0.2); ABS Eosinophils 0.1 10^3/ul (0-0.6); ABS Lymphocytes 2.9 10^3/ul (1.0-4.8); ABS Monocytes 0.7 10^3/ul (0-0.8); ABS Neutrophils 9.7 10^3/ul (1.5-7.7); Eosinophil % 0.7 %; Hematocrit 35 % (35-47); Hemoglobin 12.2 g/dL (12.0-16.0); Lymphocyte % 21.3 %; Mean Corpuscular HGB Conc 35 g/dL (31-36); Mean Corpuscular Hemoglobin 31 pg (27-31); Mean Corpuscular Volume 88 fL (80-97); Mean Platelet Volume 7.9 fL (7.4-10.4); Platelet Count 265 10^3/uL (150-450); Red Blood Count 3.96 10^6 /uL (3.70-4.87); Red Cell Distribution Width 15 % (10-15); White Blood Count 13.4 10^3/uL (3.5-10.8)
[2019-08-31] MEDS: Ibuprofen TAB* 600 MG PO PRN (07:38)
[2019-08-31] MEDS: oxyCODONE/Acetamin 5/325 MG* TAB PO PRN (07:39)
[2019-08-31 07:58] VITALS: BP 137/91
[2019-08-31] MEDS ORDERED: Ferrous Gluconate TAB* 324 MG TAB PO SCH (09:00)
[2019-08-31 17:37] LABS: Urine Bacteria Absent (Absent); Urine Red Blood Cell Trace(0-2/hpf) (Absent); Urine Squamous Epithelial Cell Present (Absent); Urine White Blood Cell Trace(0-5/hpf) (Absent)
--- NOTE | 2019-09-07 04:22 | OP ---
DATE OF OPERATION: 08/30/19 - ROOM #115 DATE OF : 89 SURGEON: Cliff Graf MD SOUND TRUCK OPERATOR: Pilar Osman CNM * ANESTHESIA: Spinal. PRE-OP DIAGNOSIS: at 38 weeks with no care, prior x2, in labor with nonreassuring monitoring, persistent category 2 tracing. POST-OP DIAGNOSIS: at 38 weeks with no care, prior x2, in labor with nonreassuring monitoring, persistent category 2 tracing. OPERATIVE PROCEDURE: Repeat low transverse section. ESTIMATED BLOOD LOSS: 500 cc. SPECIMENS SENT TO PATHOLOGY: Cord blood. FLUIDS: She received 1200 cc of IV crystalloid fluid. URINE OUTPUT: Clear. FINDINGS: Delivery of a viable male infant with a weight of 6 pounds and 13 ounces with Apgars of 9 and 9 over a thin meconium fluid. There were dense adhesions from the anterior uterine wall to the anterior abdominal wall in the posterior rectus muscle. The bladder was within normal limits. The adnexa and bowel were not visualized due to adhesions. DESCRIPTION OF PROCEDURE: The patient was taken to the operating room where she was identified. She was placed on the operating table where a spinal anesthetic was obtained without difficulty. She was then placed in the supine position with a leftward tilt, prepped and draped in a normal sterile fashion. A Pfannenstiel skin incision was then made with the knife and carried through the underlying layer of fascia. The fascia was then nicked in the midline and extended laterally with curved Zhou scissors. The fascia was then grasped superiorly and inferiorly with James clamps and dissected off sharply from the rectus muscle. The rectus muscle was in the midline bluntly. The peritoneum was identified, grasped with pickups and entered sharply with Metzenbaum scissors and extended superiorly and inferiorly bluntly. A bladder blade was inserted into the patient's abdomen. A bladder flap was created using Metzenbaum scissors over which the bladder blade was then reinserted. A low-transverse uterine incision was made with a knife and extended laterally with bandage scissors. The amniotic sac was ruptured. The infant's head was then grasped and delivered atraumatically. The rest of infant's body was then delivered. The cord was clamped and cut and the was handed off to awaiting database operator. Cord bloods were obtained. The placenta was then removed manually. The uterus was left in situ due to adhesions. The uterine cavity was then cleaned with moist laparotomy sponges. The sponges were then removed from the uterus and abdomen. The uterine incision was then closed in situ with 0 Polysorb suture in a running locked fashion with a second imbricating layer of 0 Polysorb suture with good hemostasis noted. The surgical site was irrigated with normal saline. The irrigation fluid was then suctioned. All the sponges and instruments were then removed from the patient' s abdomen. The peritoneum was then closed using 3-0 Polysorb suture in a running fashion. The fascia was closed using 0 Polysorb suture in a running fashion and the skin was closed with 4-0 Monocryl subcuticular stitch. The patient tolerated the procedure well. Sponge, lap, and needle counts were correct x2. She was then transferred to the recovery room area in stable condition. [id number]/CPS #: [id number] MTDD
== END 2019-08-31 13:25 | disposition home or self-care (01) | DRG 540 ==
LOC: MCHOBOUT 22:35 → MCHOB 23:05
PROVIDERS: ADMIT Obstetrics & Gynecology; ATTEND Obstetrics & Gynecology
PROC: 10D00Z1 Extraction of Products of Conception, Low, Open Approach (ICD-10-PCS; principal; 2019-08-30)
PROC: 4A1HXCZ Monitoring of Products of Conception, Cardiac Rate, External Approach (ICD-10-PCS; 2019-08-30)
DX: O34.211 Maternal care for low transverse scar from previous cesarean delivery (principal); O99.334 Smoking (tobacco) complicating childbirth; F17.210 Nicotine dependence, cigarettes, uncomplicated; O76 Abnormality in fetal heart rate and rhythm complicating labor and delivery; O77.0 Labor and delivery complicated by meconium in amniotic fluid; Z3A.38 38 weeks gestation of pregnancy; Z37.0 Single live birth; Z91.030 Bee allergy status
CPT/HCPCS: 36415; 80053; 80307; 81003; 81015; 84550; 85025; 85730; 86762; 86780; 86850; 86900; 86901; 87086; 87340; 87389; 87491; 87591; 88307; 99282; A9270-GY; G0480; J0694; J1885; J2405; J2590; J3010

== ENCOUNTER 2019-11-26 09:33 | Emergency (ER) | payer OTHER ==
[2019-11-26 10:24] VITALS: BP 115/75
--- NOTE | 2019-11-26 10:24 | ED ---
Back Pain - HPI Summary HPI Summary: This patient is a 24-year-old female who presents to the ED with mid to low back pain after a fall last week. She states she was recovering well until this morning when she awoke and felt like she could not use her right leg appropriately. She denies any bladder or bowel dysfunction. Denies any numbness or tingling. She states she is having pain radiating from the mid to low back down the right leg. Denies any foot drop. She has had a history of herniated disc, unsure if it was thoracic or lumbar in location. Patient is also here to acquire Covid testing. Patient states she has had a cough and has had sweats since last night. She is endorsing subjective fevers. Denies any chills. She states she had a PNA before and this feels similar. She is not taking any medications. Denies any nausea, vomiting, diarrhea. She arrives with her -2-month-old son who also was feeling sweaty last night. - History of Current Complaint Chief Complaint: EDFever Stated Complaint: RIB/BACK PAIN POSS UTI PER PT Time Seen by Provider: 11/26/19 09:48 Hx Obtained From: Patient Hx Last Menstrual Period: 07/06/14 Onset/Duration: Gradual Onset Onset/Duration: Started Hours Ago Timing: Constant Back Pain Location: Is Discrete @ - R sided mid to low back Severity Initially: Moderate Severity Currently: Moderate Pain Intensity: 0 Pain Scale Used: 0-10 Numeric Character: Aching Alleviating Symptom(s): Rest, Position Associated Signs And Symptoms: Negative: Swelling, Redness, Bruising, Weakness, Numbness, Bladder Incontinence, Bowel Incontinence - Risk Factors AAA Risk Factors: Negative TAD Risk Factors: Negative Cauda Equina Risk Factors: Negative Epidural Abscess Risk Factors: Negative - Allergies/Home Medications Allergies/Adverse Reactions: Allergies Allergy/AdvReac Type Severity Reaction Status Date / Time bee venom protein (honey bee) Allergy Anaphylatic Verified 08/29/19 22:19 Shock Home Medications: Home Medications Acetaminophen TAB* [Tylenol TAB*] 650 mg PO Q4H PRN tab 08/31/19 [Rx] Ibuprofen TAB* [Motrin TAB* 600 MG] 600 mg PO Q6H PRN tab 08/31/19 [Rx] Witch Gretchen PAD* [Tucks*] 1 pad TOPICAL .PRN PRN jar 08/31/19 [Rx] Acetaminophen TAB* [Tylenol TAB*] 650 mg PO Q6H PRN #30 tab 11/26/19 [Rx] Azithromycin TAB* [Zithromax TAB (Z-ANA MARÍA) 250 mg #6 tabs] 2 tab PO .TODAY, THEN 1 DAILY #1 ana maría 11/26/19 [Rx] PMH/Surg Hx/FS Hx/Imm Hx Previously Healthy: Yes Endocrine/Hematology History: Denies: Hx Diabetes, Hx Thyroid Disease Cardiovascular History: Denies: Hx Hypercholesterolemia, Hx Hypertension Respiratory History: Reports: Hx Asthma Denies: Hx Chronic Obstructive Pulmonary Disease (COPD) GI History: Denies: Hx Ulcer Sensory History: Denies: Hx Legally Blind, Hx Deafness Opthamlomology History: Denies: Hx Legally Blind Psychiatric History: Reports: Hx Anxiety, Hx Depression, Hx Post Traumatic Stress Disorder - no formal dx; assumed due to infant Denies: Hx Attention Deficit Hyperactivity Disorder, Hx Eating Disorder, Hx Panic Disorder, Hx Inpatient Treatment, Hx Community Mental Health Tx, Hx Schizophrenia, Hx Bipolar Disorder, Hx Suicide Attempt, Hx of Violent Episodes Against Others, Hx Substance Abuse - hx of marijuana use, Other Psychiatric Issues/Disorders - Surgical History Surgery Procedure, Year, and Place: - Immunization History Hx Pertussis Vaccination: No Immunizations Up to Date: Yes Infectious Disease History: No Infectious Disease History: Denies: Hx Hepatitis, Hx Human Immunodeficiency Virus (HIV), Traveled Outside the [place] in Last 30 Days - Family History Known Family History: Positive: Other - Breast cancer - Social History Occupation: Unemployed Lives: With Family Alcohol Use: None Hx Substance Use: Yes Substance Use Type: Reports: Marijuana Substance Use Comment - Amount & Last Used: used during , negative tox screen on admission Hx Tobacco Use: Yes Smoking Status (MU): Light Every Day Tobacco Smoker Type: Cigarettes Amount Used/How Often: 1/2 pack / day Length of Time of Smoking/Using Tobacco: 7yrs Have You Smoked in the Last Year: Yes Review of Systems Positive: Fever. Negative: Chills, Fatigue, Skin Diaphoresis Negative: Palpitations, Chest Pain Positive: Cough. Negative: Shortness Of Breath Negative: Abdominal Pain Genitourinary: Negative Positive: no symptoms reported, see HPI Positive: Arthralgia - mid to low back pain. Negative: Myalgia Neurological/Mental Status: Negative All Other Systems Reviewed And Are Negative: Yes Physical Exam Triage Information Reviewed: Yes Vital Signs On Initial Exam: Initial Vitals Temp Pulse Resp BP Pulse Ox 100.6 F 116 16 115/75 99 11/26/19 10:21 11/26/19 10:21 11/26/19 10:21 11/26/19 10:21 11/26/19 10:21 Vital Signs Reviewed: Yes Appearance: Positive: Well-Appearing, Well-Nourished Skin: Positive: Warm, Skin Color Reflects Adequate Perfusion Head/Face: Positive: Normal Head/Face Inspection Eyes: Positive: EOMI, LINDA, Conjunctiva Clear Neck: Positive: Supple, No Lymphadenopathy Respiratory/Lung Sounds: Positive: Clear to Auscultation, Breath Sounds Present Cardiovascular: Positive: RRR, Pulses are Symmetrical in both Upper and Lower Extremities Musculoskeletal: Positive: Normal, Strength/ROM Intact Neurological: Positive: Normal, Sensory/Motor Intact, Alert, Oriented to Person Place, Time, Speech Normal Psychiatric: Positive: Normal, Affect/Mood Appropriate AVPU Assessment: Alert Procedures - Sedation Patient Received Moderate/Deep Sedation with Procedure: No Diagnostics - Vital Signs Vital Signs Temp Pulse Resp BP Pulse Ox 11/26/19 10:21 100.6 F 116 16 115/75 99 - Laboratory Lab Statement: Any lab studies that have been ordered have been reviewed, and results considered in the medical decision making process. Back Pain Course/Dx - Course Course Of Treatment: This patient's evaluated for mid to low back pain as well as persistent cough and subjective fevers. Patient is requesting COVID testing. States she would like an xray d/t her hx of herniation and COVID testing d/t her sweats and cough since last night. Denies any nausea or vomiting or diarrhea. VS stable. IMPRESSION: RIGHT MIDDLE LOBE ATELECTASIS AND CONSOLIDATION. RECOMMEND FOLLOW-UP UNTIL RESOLUTION TO EXCLUDE UNDERLYING PULMONARY PARENCHYMAL PATHOLOGY. Pt was given tylenol and temp reduced to 99.0. Pt states she feels improved. IMPRESSION: MILD DEGENERATIVE DISC DISEASE. Taking PO well. Azithromycin prescribed. Will f/u or return if needed. - Diagnoses Provider Diagnoses: Pneumonia - Critical Care Time Critical Care Statement: Critical care time is provided exclusive of any time spent performing procedures. Discharge ED - Sign-Out/Discharge Documenting (check all that apply): Patient Departure - Discharge Plan Condition: Stable Disposition: HOME Prescriptions: Acetaminophen TAB* [Tylenol TAB*] 650 mg PO Q6H PRN #30 tab PRN Reason: Pain - Mild Azithromycin TAB* [Zithromax TAB (Z-ANA MARÍA) 250 mg #6 tabs] 2 tab PO .TODAY, THEN 1 DAILY #1 ana maría Patient Education Materials: Pneumonia (ED) Referrals: No Primary Care Phys,NOPCP [Primary Care Provider] - Additional Instructions: You have been prescribed antibiotics for a pneumonia. Please take as directed and follow up if you develop worsening symptoms or continue to have fevers. You were seen in the emergency department for coronavirus rule out. The department of health will contact you within 48-72 hours. Due to the pandemic, you should stay in your house and self-quarantine. See the separate quarantine paper for further instructions. You should wear a mask if you're outside of your personal room. We encourage handwashing as well as limited contact with other people including the elderly and the immunocompromised. If any studies were not completed at the time of discharge you will be called with the relevant results. Return to the emergency department for severe trouble breathing, worsening or concerning symptoms. It was a pleasure taking care of you today. - Billing Disposition and Condition Condition: STABLE Disposition: Home
[2019-11-26] MEDS ORDERED: Acetaminophen TAB* 325 MG PO ONE (10:29)
== END 2019-11-26 12:17 | disposition home or self-care (01) ==
LOC: ED 09:33
DX: J18.9 Pneumonia, unspecified organism (principal); M54.5 Low back pain; M51.36 Other intervertebral disc degeneration, lumbar region; R05 Cough; Z20.828 Contact with and (suspected) exposure to other viral communicable diseases; F17.210 Nicotine dependence, cigarettes, uncomplicated; R50.9 Fever, unspecified; F41.9 Anxiety disorder, unspecified; F32.9 Major depressive disorder, single episode, unspecified; F43.10 Post-traumatic stress disorder, unspecified
CPT/HCPCS: 71046; 72100; 87635; 99282; A9270-GY; U0003

== ENCOUNTER 2024-07-06 09:22 | Observation (INO) ==
[2024-07-06] MEDS: Acetaminophen IV 1 GM/100ML 1,000 MG/100 ML BAG IV ONE (09:59)
[2024-07-06 10:00] LABS: ABS Basophils 0.1 10^3/uL (0.0-0.1); ABS Eosinophils 0.1 10^3/uL (0.0-0.5); ABS Lymphocytes 0.8 10^3/uL (1.0-4.8); ABS Neutrophils 17.3 10^3/uL (1.5-7.6); Eosinophil % 0.6 %; Hematocrit 41.5 % (35-45); Lymphocyte % 4.3 %; Mean Corpuscular Hemoglobin 31.3 pg (27-33); Mean Corpuscular Hgb Conc 33.8 g/dL (31-36); Mean Corpuscular Volume 92.6 fL (80-97); Mean Platelet Volume 7.8 fL (7.5-11.2); Platelet Count 273 10^3/uL (150-450); Red Blood Count 4.48 10^6/uL (3.63-4.92); Red Cell Distribution Width 12.8 % (12-17); White Blood Count 19.4 10^3/uL (3.8-11.8)
[2024-07-06] MEDS ORDERED: Vancomycin 1,250 MG in NS 0.9% 250 ml 250 ML IVPB SCH (10:00)
[2024-07-06] MEDS ORDERED: Vancomycin 1,000 MG in NS 0.9% 250 ml 250 ML IVPB SCH (10:00)
[2024-07-06] MEDS: Lactated Ringers 1000 ml BAG 1,000 ML IV ONE ×2 (10:10→10:30)
[2024-07-06 10:25] LABS: High Sens Troponin Baseline 17 pg/mL (<15)
[2024-07-06] MEDS: Cefepime 2 GM in Dextrose 2 GM/50 ML BAG IV ONE (10:32)
[2024-07-06] MEDS: metroNIDAZOLE IV 500 MG/100ML 500 MG/100 ML BAG IVPB ONE (10:32)
[2024-07-06 10:42] LABS: ALT 10 U/L (7-52); AST 10 U/L (13-39); Albumin 3.9 g/dL (3.2-5.2); Albumin/Globulin Ratio 1.6 (1-3); Alkaline Phosphatase 64 U/L (35-149); Anion Gap 11 mmol/L (2-16); Blood Urea Nitrogen 9 mg/dL (6-24); C Reactive Protein 200.76 mg/L (<8.01); CO2 Carbon Dioxide 26 mmol/L (22-32); Calcium 8.8 mg/dL (8.6-10.3); Chloride 98 mmol/L (101-111); Creatinine, Serum 0.69 mg/dL (0.51-0.95); Globulin 2.4 g/dL (2-4); Glucose 125 mg/dL (70-100); Potassium 3.8 mmol/L (3.5-5.0); Sodium 135 mmol/L (135-145); Total Bilirubin 0.5 mg/dL (0.2-1.0); Total Protein 6.3 g/dL (6.4-8.9); eGFR CKD-EPI 119.7 (>60)
[2024-07-06 11:00] LABS: Activated Partial Thrombo Time 28.7 seconds (26.0-38.0); INR 1.01 (0.85-1.14)
[2024-07-06 11:26] LABS: Urine Appearance Turbid; Urine Bilirubin Negative (Negative); Urine Blood Negative (Negative); Urine Color Yellow; Urine Glucose Negative (Negative); Urine Ketones Negative (Negative); Urine Nitrite Negative (Negative); Urine Protein 1+ (>=30 mg/dL) (Negative); Urine Specific Gravity 1.019 (1.002-1.030); Urine Urobilinogen 1+ (Negative)
[2024-07-06 11:41] LABS: Urine Bacteria 1+ /HPF (Absent); Urine Red Blood Cell 2+(6-10/hpf) /HPF (0-Trace); Urine Squamous Epithelial Cell Present /HPF (Absent); Urine White Blood Cell 2+(11-20/hpf) /HPF (0-Trace)
[2024-07-06] MEDS: Vancomycin 1,000 MG - ED ONCE IVPB ONE (11:48)
[2024-07-06 11:52] LABS: High Sensitivity Troponin 1 Hr 16 pg/mL (<15)
[2024-07-06 13:01] LABS: HCG Pregnancy < 0.60 mIU/mL
[2024-07-06] MEDS: Iohexol 300 (CONTRAST) 10 ML SDV IV ONE (13:43)
[2024-07-06] MEDS ORDERED: Albuterol HFA INHALER 8 gm MDI INH PRN (16:18)
[2024-07-06] MEDS ORDERED: Vancomycin per Pharmacy 1 EA NOTE FOLLOW UP SCH (17:00)
[2024-07-06] MEDS: Lactated Ringers 1000 ml BAG 1,000 ML IV SCH (18:36)
[2024-07-06] MEDS: Vancomycin 1,000 MG in NS 0.9% 250 ml 250 ML IVPB SCH (21:26)
[2024-07-06] MEDS: Cefepime 2 GM in Dextrose 2 GM/50 ML BAG IV SCH (22:45)
[2024-07-07] MEDS: Cefepime 2 GM in Dextrose 2 GM/50 ML BAG IV SCH (01:29)
[2024-07-07] MEDS: Vancomycin 1,000 MG in NS 0.9% 250 ml 250 ML IVPB SCH (04:01)
[2024-07-07 06:48] LABS: ABS Basophils 0.1 10^3/uL (0.0-0.1); ABS Eosinophils 0.4 10^3/uL (0.0-0.5); ABS Lymphocytes 1.4 10^3/uL (1.0-4.8); ABS Monocytes 0.7 10^3/uL (0.0-0.9); ABS Neutrophils 8.5 10^3/uL (1.5-7.6); ABS Nucleated RBC 0.01 10^3/ul; Eosinophil % 3.7 %; Hematocrit 40.5 % (35-45); Hemoglobin 13.8 g/dL (11.5-14.3); Lymphocyte % 13.1 %; Mean Corpuscular Hemoglobin 31.8 pg (27-33); Mean Corpuscular Hgb Conc 34.1 g/dL (31-36); Mean Corpuscular Volume 93.1 fL (80-97); Mean Platelet Volume 7.6 fL (7.5-11.2); Nucleated Red Blood Cells % 0.1 %/100WBC (0.0-0.8); Platelet Count 226 10^3/uL (150-450); Red Blood Count 4.36 10^6/uL (3.63-4.92); Red Cell Distribution Width 12.9 % (12-17); White Blood Count 11.1 10^3/uL (3.8-11.8)
[2024-07-07 07:21] LABS: Creatinine, Serum 0.59 mg/dL (0.51-0.95); Magnesium 1.7 mg/dL (1.9-2.7); Potassium 3.9 mmol/L (3.5-5.0); eGFR CKD-EPI 124.3 (>60)
[2024-07-07 09:24] VITALS: BP 92/54
[2024-07-07] MEDS ORDERED: Vancomycin Trough Check NOTE FOLLOW UP ONE ×2 (11:30→19:30)
[2024-07-07] MEDS: Magnesium Sulfate 2 gm BAG 2 GM/50 ML BAG IVPB ONE (14:05)
== END 2024-07-07 12:20 | disposition left against medical advice (07) ==
LOC: EDHOLD 09:22 → ED 09:22 → EDHOLD 17:00 → MED 22:07
PROVIDERS: ADMIT Internal Medicine; ATTEND Internal Medicine

== ENCOUNTER 2024-07-08 20:38 | Observation (INO) ==
[2024-07-08] MEDS: Cefepime 2 GM in Dextrose 2 GM/50 ML BAG IV ONE (21:49)
[2024-07-08] MEDS: Lactated Ringers 1000 ml BAG 1,000 ML IV ONE (22:09)
[2024-07-08 22:18] LABS: Albumin 3.4 g/dL (3.2-5.2); Albumin/Globulin Ratio 1.6 (1-3); C Reactive Protein 68.24 mg/L (<8.01); Calcium 8.5 mg/dL (8.6-10.3); Creatinine, Serum 0.59 mg/dL (0.51-0.95); Globulin 2.1 g/dL (2-4); Potassium 3.9 mmol/L (3.5-5.0); Total Bilirubin 0.3 mg/dL (0.2-1.0); Total Protein 5.5 g/dL (6.4-8.9); eGFR CKD-EPI 124.3 (>60)
[2024-07-08] MEDS: Vancomycin 1,000 MG in NS 0.9% 250 ml 250 ML IVPB ONE (22:47)
[2024-07-08 22:56] LABS: ABS Basophils 0.1 10^3/uL (0.0-0.1); ABS Eosinophils 0.2 10^3/uL (0.0-0.5); ABS Lymphocytes 2.2 10^3/uL (1.0-4.8); ABS Monocytes 0.5 10^3/uL (0.0-0.9); ABS Neutrophils 7.6 10^3/uL (1.5-7.6); ABS Nucleated RBC 0.01 10^3/ul; Hematocrit 33.1 % (35-45); Hemoglobin 11.4 g/dL (11.5-14.3); Lymphocyte % 20.7 %; Mean Corpuscular Hemoglobin 31.8 pg (27-33); Mean Corpuscular Hgb Conc 34.5 g/dL (31-36); Mean Platelet Volume 7.6 fL (7.5-11.2); Platelet Count 316 10^3/uL (150-450); White Blood Count 10.6 10^3/uL (3.8-11.8)
[2024-07-08] MEDS ORDERED: Vancomycin per Pharmacy 1 EA NOTE FOLLOW UP SCH (23:45)
[2024-07-09] MEDS: Lactated Ringers 1000 ml BAG 1,000 ML IV SCH (02:47)
[2024-07-09] MEDS ORDERED: Vancomycin 1,000 MG in NS 0.9% 250 ml 250 ML IVPB ONE (03:00)
[2024-07-09] MEDS: cefTRIAXone 2 gm/50 mL D5W 2 GM/50 ML BAG IV SCH (05:40)
[2024-07-09 06:00] LABS: ABS Basophils 0.1 10^3/uL (0.0-0.1); ABS Eosinophils 0.3 10^3/uL (0.0-0.5); ABS Lymphocytes 2.3 10^3/uL (1.0-4.8); ABS Monocytes 0.5 10^3/uL (0.0-0.9); ABS Neutrophils 5.3 10^3/uL (1.5-7.6); Eosinophil % 3.4 %; Hematocrit 36.2 % (35-45); Hemoglobin 12.1 g/dL (11.5-14.3); Lymphocyte % 27.2 %; Mean Corpuscular Hemoglobin 31.3 pg (27-33); Mean Corpuscular Hgb Conc 33.5 g/dL (31-36); Mean Corpuscular Volume 93.4 fL (80-97); Mean Platelet Volume 7.5 fL (7.5-11.2); Platelet Count 319 10^3/uL (150-450); Red Blood Count 3.87 10^6/uL (3.63-4.92); Red Cell Distribution Width 13.1 % (12-17); White Blood Count 8.5 10^3/uL (3.8-11.8)
[2024-07-09] MEDS: Vancomycin 1000 MG in NS 0.9% 250 ML IVPB SCH (06:24)
[2024-07-09 06:53] LABS: Creatinine, Serum 0.68 mg/dL (0.51-0.95); Potassium 3.9 mmol/L (3.5-5.0); eGFR CKD-EPI 120.1 (>60)
[2024-07-09 07:17] VITALS: BP 98/53
[2024-07-09] MEDS: Ondansetron 4 mg VIAL 2 MG/ML 2 ml VIAL IV PRN (07:39)
[2024-07-10] MEDS ORDERED: Vancomycin Trough Check NOTE FOLLOW UP ONE (05:30)
== END 2024-07-09 09:57 | disposition left against medical advice (07) ==
LOC: ED 20:38 → INTOOBSV 23:36 → EDHOLD 23:36
PROVIDERS: ADMIT Internal Medicine; ATTEND Hospitalist